=== PATIENT | male | born 1955 | race Caucasian/White ===

== ENCOUNTER 2016-07-14 06:06 | Day surgery (SDC) | payer OTHER ==
[~2016-07-14] VITALS: Ht 172.7 cm; Wt 110.7 kg
== END 2016-07-14 09:42 | disposition home or self-care (01) ==
LOC: SSS 06:06 → EDSTATUS 07:45 → SSS 07:45
DX: J32.8 Other chronic sinusitis (principal); M79.7 Fibromyalgia; R42 Dizziness and giddiness; Z79.899 Other long term (current) drug therapy

== ENCOUNTER → 2016-10-25 | Outpatient (CLI) | payer OTHER | END | disposition home or self-care (01) | LOC: RESC 08:45 | DX: J44.9 Chronic obstructive pulmonary disease, unspecified (principal) ==